=== PATIENT | female | born 1950 | race Asian ===

== ENCOUNTER 2017-06-30 13:14 | Inpatient (IN) | payer MEDICARE ==
[~2017-06-30] VITALS: Ht 162.6 cm; Wt 64.9 kg
[~2017-06-30 13:14] MED LIST: ETOMIDATE 2 MG/ML 10 ML VIAL IVP ONE; ROCURONIUM BROMIDE 10 MG/ML 5 ML VIAL IVP ONE
[2017-06-30] MEDS ORDERED: FentaNYL CITRATE PF 500 MCG in DEXTROSE 5%-WATER 90 ML IV PRN ×2 (13:30→21:24)
[2017-06-30] MEDS ORDERED: FentaNYL CITRATE-PF 100 MCG/2 ML VIAL ONE (13:32)
[2017-06-30 13:40] LABS: BASOPHILS % (AUTO) 0.5 % (0.0-2.0); EOSINOPHILS % (AUTO) 2.4 % (1.0-6.0); HEMATOCRIT 26.2 % (36-46); HEMOGLOBIN 8.6 g/dL (12.0-16.0); LYMPHOCYTES # (AUTO) 2.3 K/uL (1.0-4.8); LYMPHOCYTES % (AUTO) 9.5 % (22.0-44.0); MEAN CORPUSCULAR HEMOGLOBIN 30.1 pg (26.0-34.0); MEAN CORPUSCULAR VOLUME 91 fL (80-100); MONOCYTES # (AUTO) 0.7 K/uL (0.1-1.0); NEUTROPHILS # (AUTO) 20.3 K/uL (1.8-7.7); NEUTROPHILS % (AUTO) 84.6 % (40.0-70.0); PLATELET COUNT (AUTO) 282 K/uL (150-450); RED BLOOD CELL COUNT(AUTO) 2.86 MIL/uL (4.00-5.20); RED CELL DISTRIBUTION WIDTH 18.6 % (11.5-14.5)
[2017-06-30 13:43] LABS: ABG A-A DIFF O2 407.3 mmHg (10-20.0); ABG BASE EXCESS -7.3 mmol/L (-2.0-3.0); ABG CARBOXYHEMOGLOBIN 1.7 % (0.0-1.5); ABG HCO3 19.3 mmol/L (22.0-26.0); ABG METHEMOGLOBIN 0.7 % (0.0-1.5); ABG OXYGEN CONTENT 12.9 mL/dL (15.0-23.0); ABG OXYHEMOGLOBIN 97.6 % (94.0-100.0); ABG PCO2 28 mmHg (35-45); ABG PH 7.408 (7.35-7.450); ABG TOTAL HEMOGLOBIN 8.9 G/dL (12.0-18.0); O2 DEVICE,BLOOD GAS VENTILATOR (ROOM AIR); PEEP,BG 5 cm H2O; PO2, ARTERIAL BG 277.8 mmHg (79.0-87.0); SITE, BLOOD GAS RT RADIAL; SOURCE, BLOOD GAS ARTERIAL; TEMPERATURE, FAHRENHEIT, BG 98.4 FAHREN (96.0-98.6); VT, ABG 500 ml
[2017-06-30] MEDS ORDERED: INSU3INS3 SQ (13:51)
[2017-06-30] MEDS ORDERED: LEVO150 PO (13:51)
[2017-06-30] MEDS ORDERED: ATOR40TA28 PO (13:51)
[2017-06-30] MEDS ORDERED: INSREG SQ (13:51)
[2017-06-30] MEDS ORDERED: FAMO20 PO (13:51)
[2017-06-30] MEDS ORDERED: SERT100T12 PO (13:51)
[2017-06-30] MEDS ORDERED: ALPR0.255 PO (13:51)
[2017-06-30] MEDS ORDERED: CLOP75 PO (13:51)
[2017-06-30] MEDS ORDERED: DSS100 PO (13:51)
[2017-06-30] MEDS ORDERED: OXYC5CAP19 PO (13:51)
[2017-06-30] MEDS ORDERED: CARV25 PO (13:51)
[2017-06-30] MEDS ORDERED: AMYL1CAP63 PO (13:51)
[2017-06-30] MEDS ORDERED: CLON1PAT13 TD (13:51)
[2017-06-30] MEDS ORDERED: DEXT1CAP3 PO (13:51)
[2017-06-30] MEDS ORDERED: IPRA3AMP4 NEB (13:51)
[2017-06-30] MEDS ORDERED: AMLO-512 PO (13:51)
[2017-06-30 13:56] LABS: ACETONE,BLOOD NEGATIVE (NEGATIVE); OSMOLALITY 334 mOS/kg (270-310)
[2017-06-30] MEDS ORDERED: SODIUM CHLORIDE 0.9% 1,000 ML IV ONE ×2 (14:00)
[2017-06-30] MEDS ORDERED: CEFEPIME HCL 1 GM in DEXTROSE 5%-WATER 10 ML IV ONE (14:00)
[2017-06-30] MEDS ORDERED: VANCOMYCIN HCL 1 GM/D5% WATER 200 ML IV ONE (14:00)
[2017-06-30 14:03] LABS: ALANINE AMINOTRANSFERASE 20 U/L (12-78); ALBUMIN 2.9 g/dL (3.4-5.0); ALKALINE PHOSPHATASE 114 U/L (46-116); ANION GAP 10 mmol/L (8-16); ASPARTATE AMINOTRANSFERASE 17 U/L (15-37); BILIRUBIN,TOTAL 0.3 mg/dL (0.1-1.0); CALCIUM, TOTAL 9.2 mg/dL (8.8-10.5); CARBON DIOXIDE 22 mmol/L (22-29); CHLORIDE 98 mmol/L (98-107); CREATINE KINASE, TOTAL 33 U/L (26-192); CREATININE 2.56 mg/dL (0.60-1.30); GLOMERULAR FILTR. RATE CALC 19 mL/min (>60); SODIUM SERUM 130 mmol/L (136-145); TOTAL PROTEIN, SERUM 8.2 g/dL (6.4-8.2); UREA NITROGEN, BLOOD 81 mg/dL (7-18)
[2017-06-30 14:05] LABS: INR 0.9 (0.9-1.1); PROTHROMBIN TIME 9.9 SEC (9.4-11.6)
[2017-06-30 14:06] LABS: LACTIC ACID 2.9 mmol/L (0.4-2.0)
[2017-06-30 14:16] LABS: GLUCOSE,RANDOM 407 mg/dL (70-110); POTASSIUM 8.5 mmol/L (3.5-5.1)
[2017-06-30 14:17] LABS: THYROID STIMULATING HORMONE 37.99 uIU/mL (0.36-3.74)
[2017-06-30] MEDS ORDERED: SODIUM BICARBONATE [ADULT] 8.4% 50 MEQ/50 ML SYRINGE IVP ONE ×2 (14:30→17:15)
[2017-06-30] MEDS ORDERED: ATROPINE SULFATE 0.1 MG/ML 10 ML SYRINGE IVP ONE (14:30)
[2017-06-30] MEDS ORDERED: ALBUTEROL SULFATE 5 MG/ML 20 ML NEB SOLN [BULK] NEB ONE (14:30)
[2017-06-30] MEDS ORDERED: INSULIN REGULAR, HUMAN 100 UNITS/ML IVP ONE (14:30)
[2017-06-30] MEDS ORDERED: DEXTROSE 50%-WATER 25 GM/50 ML SYRINGE IVP ONE (14:30)
[2017-06-30] MEDS ORDERED: CALCIUM GLUCONATE 0.465 MEQ/ML 10 ML VIAL IVP ONE (14:30)
[2017-06-30] MEDS ORDERED: FUROSEMIDE 40 MG/4 ML VIAL IVP ONE (14:45)
[2017-06-30 14:49] LABS: B-TYPE NATRIURETIC PEPTIDE 53 pg/mL (0-100)
[2017-06-30] MEDS ORDERED: FentaNYL CITRATE-PF 100 MCG/2 ML VIAL IVP ONE (15:45)
[2017-06-30] MEDS ORDERED: PROPOFOL 1000 MG/ISO-OSM 100 ML IV PRN (15:51)
[2017-06-30] MEDS ORDERED: 0.9% SODIUM CHLORIDE 10 ML SYRINGE IVP PRN (16:00)
[2017-06-30] MEDS ORDERED: ONDANSETRON HCL 4 MG/2 ML VIAL IVP PRN ×2 (16:00→17:45)
[2017-06-30] MEDS ORDERED: ACETAMINOPHEN 325 MG TABLET PO PRN (16:00)
[2017-06-30 16:32] LABS: GLUCOSE,POINT OF CARE 238 MG/DL (70-110)
[2017-06-30] MEDS: LORazepam 2 MG/ML VIAL IVP PRN (16:33)
[2017-06-30 16:52] LABS: CREATINE KINASE, TOTAL 42 U/L (26-192)
[2017-06-30 17:00] VITALS: BP 67/48
[2017-06-30] MEDS ORDERED: NOREPINEPHRINE 4 MG/D5%-WATER 250 ML IV PRN (17:13)
[2017-06-30] MEDS ORDERED: PHENYLEPHRINE 200 MG/D5%-WATER 250 ML IV PRN (17:16)
[2017-06-30] MEDS ORDERED: NOREPINEPHRINE 4 MG/D5%-WATER 250 ML IV ONE (17:18)
[2017-06-30 17:20] LABS: ABG A-A DIFF O2 85.5 mmHg (10-20.0); ABG BASE EXCESS -5.1 mmol/L (-2.0-3.0); ABG CARBOXYHEMOGLOBIN 0.8 % (0.0-1.5); ABG HCO3 20.8 mmol/L (22.0-26.0); ABG METHEMOGLOBIN 0.2 % (0.0-1.5); ABG OXYGEN CONTENT 10.9 mL/dL (15.0-23.0); ABG OXYGEN SATURATION 98.3 % (95.0-98.0); ABG OXYHEMOGLOBIN 97.3 % (94.0-100.0); ABG PCO2 27 mmHg (35-45); ABG PH 7.463 (7.35-7.450); PO2, ARTERIAL BG 97.5 mmHg (79.0-87.0); SOURCE, BLOOD GAS ARTERIAL; TEMPERATURE, FAHRENHEIT, BG 97.3 FAHREN (96.0-98.6)
[2017-06-30 17:21] LABS: ABG TOTAL HEMOGLOBIN 7.8 G/dL (12.0-18.0); O2 DEVICE,BLOOD GAS VENTILATOR (ROOM AIR); PEEP,BG 5 cm H2O; SITE, BLOOD GAS RT RADIAL; VT, ABG 500 ml
[2017-06-30] MEDS ORDERED: VANCOMYCIN HCL 1 GM/D5% WATER 200 ML IV PRN (17:30)
[2017-06-30] MEDS: SODIUM CHLORIDE 0.9% 1,000 ML IV SCH (17:41)
[2017-06-30] MEDS ORDERED: BISACODYL 10 MG RECTAL RECTAL SUPPOSITORY PR PRN (17:45)
[2017-06-30] MEDS ORDERED: MAGNESIUM HYDROXIDE SUSPENSION 30 ML UDCUP PO PRN (17:45)
[2017-06-30] MEDS ORDERED: SODIUM CHLORIDE 0.9% 250 ML IV ONE (18:01)
[2017-06-30] MEDS: LevETIRAcetam 500 MG in DEXTROSE 5%-WATER 100 ML IV SCH (18:09)
[2017-06-30] MEDS: PIPERACILLIN SODIUM/TAZOBACTAM 2.25 GM in DEXTROSE 5%-WATER 50 ML IV SCH (18:09)
[2017-06-30] MEDS ORDERED: METOCLOPRAMIDE HCL 5 MG/ML 2 ML VIAL IVP PRN (18:15)
[2017-06-30 18:25] LABS: CREATINE KINASE, TOTAL 39 U/L (26-192)
[2017-06-30 19:17] LABS: SODIUM,URINE RANDOM 75 mmol/l (20-110); UREA NITROGEN,URINE RANDOM 360 mg/dL (350-1000)
[2017-06-30 19:48] LABS: APPEARANCE,URINE CLOUDY (CLEAR); BILIRUBIN,URINE NEGATIVE (NEGATIVE); GLUCOSE, URINE (UA) 100 mg/dL (NEGATIVE); KETONES,URINE NEGATIVE (NEGATIVE); LEUKOCYTE ESTERASE ,URINE LARGE (NEGATIVE); NITRATE,URINE NEGATIVE (NEGATIVE); OCCULT BLOOD,URINE SMALL (NEGATIVE); PROTEIN,URINE SEE CONFIRM (NEGATIVE); UROBILINOGEN,URINE 0.2 mg/dL (<=1.0)
[2017-06-30 19:54] LABS: GLUCOSE,POINT OF CARE 97 MG/DL (70-110)
[2017-06-30 20:00] VITALS: BP 113/67
[2017-06-30 20:45] LABS: CALCIUM, TOTAL 9.1 mg/dL (8.8-10.5); CREATININE 1.53 mg/dL (0.60-1.30); POTASSIUM 4.5 mmol/L (3.5-5.1)
[2017-06-30] MEDS ORDERED: PNEUMOCOCCAL VACCINE POLYVALENT 0.5 ML VIAL [PPSV23] IM ONE (20:45)
[2017-06-30] MEDS ORDERED: HEPARIN SODIUM,PORCINE 1,000 UNITS/ML VIAL IVP ONE (20:53)
[2017-06-30 20:59] LABS: SULFOSALICYLIC ACID,URINE 3+ (Negative)
[2017-06-30 21:07] LABS: RBC,URINE 0-2 /HPF (0-2); WBC,URINE >100 /HPF (0-5)
[2017-06-30 21:08] LABS: AMORPHOUS SEDIMENT,UR Few /LPF (None Seen); BACTERIA,URINE Moderate /HPF (None Seen); RENAL EPITHELIAL CELLS,URINE Rare /LPF (None Seen); SQUAMOUS EPITHELIAL CELL,UR Rare /LPF (None Seen)
[2017-06-30 21:12] LABS: HEMATOCRIT 24.6 % (36-46); HEMOGLOBIN 8.6 g/dL (12.0-16.0)
[2017-07-01] VITALS: BP 92/58
[2017-07-01] MEDS: SODIUM CHLORIDE 0.9% 1,000 ML IV SCH ×2 (00:10→06:46)
[2017-07-01] MEDS: PIPERACILLIN SODIUM/TAZOBACTAM 2.25 GM in DEXTROSE 5%-WATER 50 ML IV SCH ×4 (00:10→17:31)
[2017-07-01] MEDS: PROPOFOL 1000 MG/ISO-OSM 100 ML IV PRN ×2 (00:11→17:29)
[2017-07-01] MEDS: DEXTROSE 50%-WATER 25 GM/50 ML SYRINGE IVP PRN ×2 (00:25→06:47)
[2017-07-01 00:57] LABS: GLUCOSE,POINT OF CARE 36 MG/DL (70-110)
[2017-07-01 01:07] LABS: GLUCOSE,POINT OF CARE 197 MG/DL (70-110)
[2017-07-01 01:10] LABS: CREATINE KINASE, TOTAL 46 U/L (26-192)
[2017-07-01 04:00] VITALS: BP 111/66
[2017-07-01 05:16] LABS: HEMOGLOBIN A1C 6.1 % (4.5-6.2)
[2017-07-01 05:22] LABS: BASOPHILS % (AUTO) 0.5 % (0.0-2.0); EOSINOPHILS % (AUTO) 1.7 % (1.0-6.0); HEMATOCRIT 21.5 % (36-46); HEMOGLOBIN 7.5 g/dL (12.0-16.0); LYMPHOCYTES # (AUTO) 1.6 K/uL (1.0-4.8); LYMPHOCYTES % (AUTO) 9.2 % (22.0-44.0); MEAN CORPUSCULAR HEMOGLOBIN 32.2 pg (26.0-34.0); MEAN CORPUSCULAR HGB CONC 35.1 G/dL (31.0-37.0); MEAN CORPUSCULAR VOLUME 92 fL (80-100); MONOCYTES # (AUTO) 0.8 K/uL (0.1-1.0); MONOCYTES % (AUTO) 4.7 % (2.0-9.0); NEUTROPHILS # (AUTO) 14.2 K/uL (1.8-7.7); NEUTROPHILS % (AUTO) 83.9 % (40.0-70.0); RED BLOOD CELL COUNT(AUTO) 2.34 MIL/uL (4.00-5.20); RED CELL DISTRIBUTION WIDTH 18.6 % (11.5-14.5)
[2017-07-01 05:25] LABS: ALANINE AMINOTRANSFERASE 17 U/L (12-78); ALBUMIN 2.3 g/dL (3.4-5.0); ALKALINE PHOSPHATASE 80 U/L (46-116); ANION GAP 10 mmol/L (8-16); ASPARTATE AMINOTRANSFERASE 20 U/L (15-37); BILIRUBIN,TOTAL 0.4 mg/dL (0.1-1.0); CALCIUM, TOTAL 8.6 mg/dL (8.8-10.5); CARBON DIOXIDE 26 mmol/L (22-29); CHLORIDE 105 mmol/L (98-107); CHOL/HDL RATIO 3.6 (3.9-5.7); CHOLESTEROL 123 mg/dL (131-200); CREATININE 1.73 mg/dL (0.60-1.30); FREE T4 (FREE THYROXINE) 0.77 ng/dL (0.76-1.46); GLOMERULAR FILTR. RATE CALC 30 mL/min (>60); GLUCOSE,RANDOM 101 mg/dL (70-110); HDL CHOLESTEROL 34 mg/dL (40-60); PHOSPHORUS 2.2 mg/dL (2.5-4.9); POTASSIUM 3.5 mmol/L (3.5-5.1); SODIUM SERUM 141 mmol/L (136-145); THYROID STIMULATING HORMONE 38.61 uIU/mL (0.36-3.74); TOTAL PROTEIN, SERUM 6.7 g/dL (6.4-8.2); TRIGLYCERIDES 479 mg/dL (15-150); UREA NITROGEN, BLOOD 31 mg/dL (7-18); VANCOMYCIN,RANDOM 15.8 mcg/mL (25.0-50.0)
[2017-07-01 05:26] LABS: B-TYPE NATRIURETIC PEPTIDE 164 pg/mL (0-100)
[2017-07-01 05:48] LABS: LACTIC ACID 3.1 mmol/L (0.4-2.0)
[2017-07-01 05:49] LABS: % IRON SATURATION 10.9 % (22-44); IRON, SERUM 32 mcg/dL (50-175); TOTAL IRON BINDING CAPACITY 293 mcg/dL (250-450)
[2017-07-01 06:24] LABS: PLATELET COUNT (AUTO) 166 K/uL (150-450)
[2017-07-01] MEDS ORDERED: MAGNESIUM SULFATE 2 GM in DEXTROSE 5%-WATER 50 ML IV ONE ×2 (06:30→08:30)
[2017-07-01] MEDS: LEVOTHYROXINE SODIUM 150 MCG TABLET PO SCH (06:46)
[2017-07-01] MEDS: LevETIRAcetam 500 MG in DEXTROSE 5%-WATER 100 ML IV SCH ×2 (06:46→17:26)
[2017-07-01 08:00] VITALS: BP 130/67
[2017-07-01 08:28] LABS: GLUCOSE,POINT OF CARE 84 MG/DL (70-110)
[2017-07-01 08:28] LABS: GLUCOSE,POINT OF CARE 57 MG/DL (70-110)
[2017-07-01] MEDS ORDERED: SODIUM CHLORIDE 0.9% 250 ML IV ONE ×4 (08:37→23:56)
[2017-07-01 08:47] LABS: GLUCOSE,POINT OF CARE 138 MG/DL (70-110)
[2017-07-01] MEDS ORDERED: CLOPIDOGREL BISULFATE 75 MG TABLET PO SCH (09:00)
[2017-07-01] MEDS: PANTOPRAZOLE SODIUM 40 MG/VIAL IVP SCH (09:03)
[2017-07-01] MEDS: DEXTROSE 5%-0.9% SODIUM CHL 1,000 ML IV SCH ×2 (09:03→22:02)
[2017-07-01 09:32] LABS: ABG A-A DIFF O2 88.2 mmHg (10-20.0); ABG BASE EXCESS -2.9 mmol/L (-2.0-3.0); ABG CARBOXYHEMOGLOBIN 1.4 % (0.0-1.5); ABG HCO3 22.4 mmol/L (22.0-26.0); ABG METHEMOGLOBIN 0.1 % (0.0-1.5); ABG OXYGEN CONTENT 10.1 mL/dL (15.0-23.0); ABG OXYGEN SATURATION 98.3 % (95.0-98.0); ABG OXYHEMOGLOBIN 96.8 % (94.0-100.0); ABG PCO2 26 mmHg (35-45); ABG PH 7.508 (7.35-7.450); PO2, ARTERIAL BG 95.6 mmHg (79.0-87.0); SOURCE, BLOOD GAS ARTERIAL; TEMPERATURE, FAHRENHEIT, BG 97.9 FAHREN (96.0-98.6)
[2017-07-01 09:33] LABS: ABG TOTAL HEMOGLOBIN 7.3 G/dL (12.0-18.0); O2 DEVICE,BLOOD GAS VENTILATOR (ROOM AIR); SITE, BLOOD GAS LFT BRACHIAL
[2017-07-01 09:34] LABS: PEEP,BG 5 cm H2O; VT, ABG 500 ml
[2017-07-01 09:44] LABS: CREATINE KINASE, TOTAL 61 U/L (26-192)
[2017-07-01] MEDS ORDERED: SODIUM PHOS,M-BASIC-D-BASIC 10 MEQ in DEXTROSE 5%-WATER 50 ML IV ONE (10:30)
[2017-07-01] MEDS ORDERED: VANCOMYCIN HCL 1 GM/D5% WATER 200 ML IV ONE (11:00)
[2017-07-01 12:00] VITALS: BP 96/60
[2017-07-01 12:18] LABS: FOLATE SERUM > 24.0 ng/mL (5.4-)
[2017-07-01 12:19] LABS: VITAMIN B12 LEVEL > 2000 pg/mL (211-911)
[2017-07-01 12:32] LABS: GLUCOSE,POINT OF CARE 173 MG/DL (70-110)
[2017-07-01] MEDS: SOD FERRIC GLUC COMPLX/SUCROSE 125 MG in SODIUM CHLORIDE 0.9% 100 ML IV SCH (13:10)
[2017-07-01 16:00] VITALS: BP 127/64
[2017-07-01 17:27] LABS: GLUCOSE,POINT OF CARE 226 MG/DL (70-110)
[2017-07-01] MEDS: INSULIN LISPRO 100 UNITS/ML SQ PRN ×2 (17:30→22:01)
[2017-07-01] MEDS ORDERED: SODIUM BICARBONATE [ADULT] 8.4% 50 MEQ/50 ML SYRINGE IVP ONE (17:54)
[2017-07-01] MEDS ORDERED: ATROPINE SULFATE 0.1 MG/ML 10 ML SYRINGE IVP ONE (17:54)
[2017-07-01] MEDS ORDERED: CALCIUM GLUCONATE 100 MG/ML 10 ML IVP ONE (17:54)
[2017-07-01 20:00] VITALS: BP 123/63
[2017-07-01 23:17] LABS: GLUCOSE,POINT OF CARE 215 MG/DL (70-110)
[2017-07-02] VITALS (19 sets, daily range): BP systolic 123–172; BP diastolic 51–78
[2017-07-02] MEDS: INSULIN LISPRO 100 UNITS/ML SQ PRN ×4 (00:10→17:43)
[2017-07-02] MEDS: PIPERACILLIN SODIUM/TAZOBACTAM 2.25 GM in DEXTROSE 5%-WATER 50 ML IV SCH ×4 (00:10→17:44)
[2017-07-02 00:57] LABS: GLUCOSE,POINT OF CARE 198 MG/DL (70-110)
[2017-07-02] MEDS: PROPOFOL 1000 MG/ISO-OSM 100 ML IV PRN ×2 (02:06→12:57)
[2017-07-02] MEDS: LevETIRAcetam 500 MG in DEXTROSE 5%-WATER 100 ML IV SCH ×2 (05:01→17:41)
[2017-07-02 05:20] LABS: BASOPHILS % (AUTO) 0.5 % (0.0-2.0); EOSINOPHILS % (AUTO) 1.3 % (1.0-6.0); LYMPHOCYTES # (AUTO) 1.3 K/uL (1.0-4.8); LYMPHOCYTES % (AUTO) 7.4 % (22.0-44.0); MEAN CORPUSCULAR HEMOGLOBIN 31.9 pg (26.0-34.0); MEAN CORPUSCULAR HGB CONC 34.3 G/dL (31.0-37.0); MEAN CORPUSCULAR VOLUME 93 fL (80-100); MONOCYTES # (AUTO) 1.1 K/uL (0.1-1.0); MONOCYTES % (AUTO) 6.2 % (2.0-9.0); NEUTROPHILS # (AUTO) 14.6 K/uL (1.8-7.7); NEUTROPHILS % (AUTO) 84.6 % (40.0-70.0); PLATELET COUNT (AUTO) 154 K/uL (150-450); RED BLOOD CELL COUNT(AUTO) 2.05 MIL/uL (4.00-5.20); RED CELL DISTRIBUTION WIDTH 18.4 % (11.5-14.5)
[2017-07-02 05:32] LABS: CALCIUM, TOTAL 7.9 mg/dL (8.8-10.5); CREATININE 2.04 mg/dL (0.60-1.30); MAGNESIUM 2.2 mg/dL (1.80-2.40); PHOSPHORUS 4.2 mg/dL (2.5-4.9); POTASSIUM 3.4 mmol/L (3.5-5.1)
[2017-07-02 05:42] LABS: GLUCOSE,POINT OF CARE 193 MG/DL (70-110)
[2017-07-02 06:08] LABS: HEMOGLOBIN 6.5 g/dL (12.0-16.0)
[2017-07-02] MEDS: LEVOTHYROXINE SODIUM 150 MCG TABLET PO SCH (06:24)
[2017-07-02] MEDS ORDERED: DiphenhydrAMINE HCL 50 MG/ML VIAL IVP ONE (07:00)
[2017-07-02] MEDS: VANCOMYCIN HCL 750 MG in DEXTROSE 5%-WATER 250 ML IV SCH (08:27)
[2017-07-02] MEDS: PANTOPRAZOLE SODIUM 40 MG/VIAL IVP SCH (08:27)
[2017-07-02 09:29] LABS: ABG A-A DIFF O2 31.5 mmHg (10-20.0); ABG BASE EXCESS -10.6 mmol/L (-2.0-3.0); ABG CARBOXYHEMOGLOBIN 1.8 % (0.0-1.5); ABG HCO3 16.7 mmol/L (22.0-26.0); ABG OXYGEN CONTENT 11.8 mL/dL (15.0-23.0); ABG OXYGEN SATURATION 99.1 % (95.0-98.0); ABG OXYHEMOGLOBIN 96.3 % (94.0-100.0); ABG PCO2 31 mmHg (35-45); ABG PH 7.315 (7.35-7.450); ABG TOTAL HEMOGLOBIN 8.5 G/dL (12.0-18.0); PO2, ARTERIAL BG 145.7 mmHg (79.0-87.0); SOURCE, BLOOD GAS ARTERIAL; TEMPERATURE, FAHRENHEIT, BG 98.2 FAHREN (96.0-98.6)
[2017-07-02 09:30] LABS: O2 DEVICE,BLOOD GAS VENTILATOR (ROOM AIR); PEEP,BG 5 cm H2O; SITE, BLOOD GAS LFT BRACHIAL; VT, ABG 450 ml
[2017-07-02] MEDS: SODIUM CHLORIDE 0.45% 1,000 ML IV SCH (11:26)
[2017-07-02] MEDS: LORazepam 2 MG/ML VIAL IVP PRN (11:26)
[2017-07-02 12:53] LABS: GLUCOSE,POINT OF CARE 248 MG/DL (70-110)
[2017-07-02] MEDS: SOD FERRIC GLUC COMPLX/SUCROSE 125 MG in SODIUM CHLORIDE 0.9% 100 ML IV SCH (12:56)
[2017-07-02 15:52] LABS: ABG A-A DIFF O2 49.4 mmHg (10-20.0); ABG BASE EXCESS -5.7 mmol/L (-2.0-3.0); ABG HCO3 20.4 mmol/L (22.0-26.0); ABG METHEMOGLOBIN 0.6 % (0.0-1.5); ABG OXYGEN CONTENT 14.8 mL/dL (15.0-23.0); ABG OXYGEN SATURATION 98.8 % (95.0-98.0); ABG OXYHEMOGLOBIN 96.2 % (94.0-100.0); ABG PCO2 34 mmHg (35-45); ABG PH 7.381 (7.35-7.450); ABG TOTAL HEMOGLOBIN 10.8 G/dL (12.0-18.0); PO2, ARTERIAL BG 125.3 mmHg (79.0-87.0); SOURCE, BLOOD GAS ARTERIAL; TEMPERATURE, FAHRENHEIT, BG 97.9 FAHREN (96.0-98.6)
[2017-07-02 15:53] LABS: CPAP, BG 5 cm H2O; O2 DEVICE,BLOOD GAS VENTILATOR (ROOM AIR); PRESSURE SUPPORT, BG 8 cm H2O; SITE, BLOOD GAS LFT BRACHIAL; VENT MODE, BG CPAP (ROOM AIR)
[2017-07-02 17:22] LABS: GLUCOSE,POINT OF CARE 166 MG/DL (70-110)
[2017-07-02 18:00] LABS: CALCIUM, TOTAL 8.2 mg/dL (8.8-10.5); CREATININE 1.77 mg/dL (0.60-1.30); POTASSIUM 3.2 mmol/L (3.5-5.1)
[2017-07-02] MEDS: POTASSIUM CHL 10 MEQ/WATER 50 ML IV SCH ×2 (18:27→21:15)
[2017-07-02] MEDS: METOPROLOL TARTRATE 25 MG TABLET PO SCH (23:04)
[2017-07-03] VITALS (9 sets, daily range): BP systolic 145–179; BP diastolic 65–89
[2017-07-03] MEDS: INSULIN LISPRO 100 UNITS/ML SQ PRN ×5 (00:18→23:48)
[2017-07-03] MEDS: PIPERACILLIN SODIUM/TAZOBACTAM 2.25 GM in DEXTROSE 5%-WATER 50 ML IV SCH ×2 (00:19→06:05)
[2017-07-03 04:08] LABS: GLUCOSE,POINT OF CARE 184 MG/DL (70-110)
[2017-07-03] MEDS ORDERED: SODIUM CHLORIDE 0.9% 250 ML IV ONE (04:11)
[2017-07-03] MEDS: HydrALAZINE HCL 20 MG/ML VIAL IVP PRN ×3 (04:48→23:04)
[2017-07-03] MEDS: LevETIRAcetam 500 MG in DEXTROSE 5%-WATER 100 ML IV SCH (05:01)
[2017-07-03] MEDS: LORazepam 2 MG/ML VIAL IVP PRN ×3 (05:01→21:41)
[2017-07-03 05:26] LABS: BASOPHILS % (AUTO) 0.7 % (0.0-2.0); EOSINOPHILS % (AUTO) 2.2 % (1.0-6.0); HEMATOCRIT 29.4 % (36-46); HEMOGLOBIN 10.3 g/dL (12.0-16.0); LYMPHOCYTES # (AUTO) 1.6 K/uL (1.0-4.8); LYMPHOCYTES % (AUTO) 9.5 % (22.0-44.0); MEAN CORPUSCULAR HEMOGLOBIN 31.1 pg (26.0-34.0); MEAN CORPUSCULAR HGB CONC 35.1 G/dL (31.0-37.0); MEAN CORPUSCULAR VOLUME 89 fL (80-100); MONOCYTES # (AUTO) 1.2 K/uL (0.1-1.0); MONOCYTES % (AUTO) 7.2 % (2.0-9.0); NEUTROPHILS # (AUTO) 13.7 K/uL (1.8-7.7); NEUTROPHILS % (AUTO) 80.4 % (40.0-70.0); PLATELET COUNT (AUTO) 171 K/uL (150-450); RED BLOOD CELL COUNT(AUTO) 3.32 MIL/uL (4.00-5.20); RED CELL DISTRIBUTION WIDTH 16.8 % (11.5-14.5)
[2017-07-03 05:38] LABS: GLUCOSE,POINT OF CARE 171 MG/DL (70-110)
[2017-07-03 05:59] LABS: CREATININE 1.54 mg/dL (0.60-1.30); MAGNESIUM 1.8 mg/dL (1.80-2.40); PHOSPHORUS 3.2 mg/dL (2.5-4.9); POTASSIUM 3.5 mmol/L (3.5-5.1)
[2017-07-03] MEDS: LEVOTHYROXINE SODIUM 150 MCG TABLET PO SCH (06:05)
[2017-07-03] MEDS: SODIUM CHLORIDE 0.45% 1,000 ML IV SCH (06:05)
[2017-07-03] MEDS: METOPROLOL TARTRATE 25 MG TABLET PO SCH ×2 (08:27→20:52)
[2017-07-03] MEDS: VANCOMYCIN HCL 750 MG in DEXTROSE 5%-WATER 250 ML IV SCH (08:27)
[2017-07-03] MEDS: PANTOPRAZOLE SODIUM 40 MG/VIAL IVP SCH (08:27)
[2017-07-03 12:12] LABS: GLUCOSE,POINT OF CARE 241 MG/DL (70-110)
[2017-07-03] MEDS: SOD FERRIC GLUC COMPLX/SUCROSE 125 MG in SODIUM CHLORIDE 0.9% 100 ML IV SCH (13:03)
[2017-07-03] MEDS: ACETAMINOPHEN 650 MG/20.3 ML SOLUTION UDCUP GT PRN (14:55)
[2017-07-03] MEDS: MORPHINE SULFATE 4 MG/ML SYRINGE IVP PRN (18:10)
[2017-07-03] MEDS: DOCUSATE SODIUM 100 MG CAPSULE PO SCH (20:52)
[2017-07-03 23:28] LABS: GLUCOSE,POINT OF CARE 189 MG/DL (70-110)
[2017-07-04] VITALS (7 sets, daily range): BP systolic 144–164; BP diastolic 74–91
[2017-07-04] MEDS: HydrALAZINE HCL 20 MG/ML VIAL IVP PRN (05:15)
[2017-07-04] MEDS: LEVOTHYROXINE SODIUM 150 MCG TABLET PO SCH (06:08)
[2017-07-04] MEDS: INSULIN LISPRO 100 UNITS/ML SQ PRN ×3 (06:09→17:51)
[2017-07-04 06:12] LABS: BASOPHILS % (AUTO) 0.6 % (0.0-2.0); EOSINOPHILS % (AUTO) 3.9 % (1.0-6.0); HEMOGLOBIN 11.7 g/dL (12.0-16.0); LYMPHOCYTES # (AUTO) 1.7 K/uL (1.0-4.8); LYMPHOCYTES % (AUTO) 8.3 % (22.0-44.0); MEAN CORPUSCULAR HEMOGLOBIN 30.3 pg (26.0-34.0); MEAN CORPUSCULAR HGB CONC 34.6 G/dL (31.0-37.0); MEAN CORPUSCULAR VOLUME 88 fL (80-100); MONOCYTES # (AUTO) 1.2 K/uL (0.1-1.0); MONOCYTES % (AUTO) 6.1 % (2.0-9.0); NEUTROPHILS # (AUTO) 16.5 K/uL (1.8-7.7); NEUTROPHILS % (AUTO) 81.1 % (40.0-70.0); PLATELET COUNT (AUTO) 215 K/uL (150-450); RED BLOOD CELL COUNT(AUTO) 3.87 MIL/uL (4.00-5.20); RED CELL DISTRIBUTION WIDTH 17.8 % (11.5-14.5)
[2017-07-04 06:30] LABS: CALCIUM, TOTAL 8.7 mg/dL (8.8-10.5); CREATININE 1.47 mg/dL (0.60-1.30); MAGNESIUM 1.9 mg/dL (1.80-2.40); PHOSPHORUS 2.8 mg/dL (2.5-4.9); POTASSIUM 4.1 mmol/L (3.5-5.1)
[2017-07-04 06:53] LABS: GLUCOSE,POINT OF CARE 178 MG/DL (70-110)
[2017-07-04] MEDS: PANTOPRAZOLE SODIUM 40 MG/VIAL IVP SCH (07:51)
[2017-07-04] MEDS: METOPROLOL TARTRATE 25 MG TABLET PO SCH ×2 (07:51→21:36)
[2017-07-04] MEDS: MORPHINE SULFATE 4 MG/ML SYRINGE IVP PRN ×3 (07:51→21:50)
[2017-07-04] MEDS: DOCUSATE SODIUM 100 MG CAPSULE PO SCH ×2 (07:51→21:36)
[2017-07-04] MEDS: SOD FERRIC GLUC COMPLX/SUCROSE 125 MG in SODIUM CHLORIDE 0.9% 100 ML IV SCH (11:54)
[2017-07-04] MEDS: DEXTROMETHORPHAN HBR/QUINIDINE 20/10 MG CAPSULE PO SCH (12:45)
[2017-07-04 16:13] LABS: GLUCOMETER DEV NAME(LOC) 5S 1M; GLUCOSE,POINT OF CARE 241 MG/DL (70-110)
[2017-07-05 00:08] LABS: GLUCOMETER DEV NAME(LOC) 5N 1P; GLUCOSE,POINT OF CARE 203 MG/DL (70-110)
[2017-07-05] MEDS: INSULIN LISPRO 100 UNITS/ML SQ PRN ×4 (00:17→18:20)
[2017-07-05 00:38] VITALS: BP 160/81
[2017-07-05 03:28] LABS: GLUCOMETER DEV NAME(LOC) 5S 1M; GLUCOSE,POINT OF CARE 321 MG/DL (70-110)
[2017-07-05 05:00] VITALS: BP 152/86
[2017-07-05] MEDS: LEVOTHYROXINE SODIUM 150 MCG TABLET PO SCH (06:04)
[2017-07-05 07:24] VITALS: BP 155/79
[2017-07-05 07:29] LABS: CREATININE 1.48 mg/dL (0.60-1.30); MAGNESIUM 1.8 mg/dL (1.80-2.40); PHOSPHORUS 2.5 mg/dL (2.5-4.9); POTASSIUM 3.9 mmol/L (3.5-5.1)
[2017-07-05] MEDS: DEXTROMETHORPHAN HBR/QUINIDINE 20/10 MG CAPSULE PO SCH ×2 (08:40→20:29)
[2017-07-05] MEDS: VANCOMYCIN HCL 1 GM/D5% WATER 200 ML IV SCH (08:40)
[2017-07-05] MEDS: PANTOPRAZOLE SODIUM 40 MG/VIAL IVP SCH (08:40)
[2017-07-05] MEDS: METOPROLOL TARTRATE 25 MG TABLET PO SCH ×2 (08:40→20:29)
[2017-07-05] MEDS: DOCUSATE SODIUM 100 MG CAPSULE PO SCH ×2 (08:41→20:29)
[2017-07-05] MEDS ORDERED: ALPRAZolam 0.25 MG TABLET PO PRN (11:15)
[2017-07-05 11:38] VITALS: BP 154/73
[2017-07-05] MEDS: SOD FERRIC GLUC COMPLX/SUCROSE 125 MG in SODIUM CHLORIDE 0.9% 100 ML IV SCH (12:12)
[2017-07-05] MEDS ORDERED: SODIUM CHLORIDE 0.9% 250 ML IV ONE (12:24)
[2017-07-05 15:33] LABS: GLUCOMETER DEV NAME(LOC) 5N 1P; GLUCOSE,POINT OF CARE 346 MG/DL (70-110)
[2017-07-05 20:18] VITALS: BP 159/101
[2017-07-05] MEDS: ACETAMINOPHEN 650 MG/20.3 ML SOLUTION UDCUP GT PRN (20:29)
[2017-07-05 23:24] LABS: GLUCOMETER DEV NAME(LOC) 5N 2S; GLUCOSE,POINT OF CARE 242 MG/DL (70-110)
[2017-07-05 23:24] LABS: GLUCOMETER DEV NAME(LOC) 5N 2S; GLUCOSE,POINT OF CARE 219 MG/DL (70-110)
[2017-07-05 23:24] LABS: GLUCOMETER DEV NAME(LOC) 5N 2S; GLUCOSE,POINT OF CARE 263 MG/DL (70-110)
[2017-07-05 23:24] LABS: GLUCOMETER DEV NAME(LOC) 5N 2S; GLUCOSE,POINT OF CARE 295 MG/DL (70-110)
[2017-07-06 00:01] VITALS: BP 155/82
[2017-07-06] MEDS: INSULIN LISPRO 100 UNITS/ML SQ PRN ×4 (00:49→18:28)
[2017-07-06 05:12] VITALS: BP 159/79
[2017-07-06] MEDS: MORPHINE SULFATE 4 MG/ML SYRINGE IVP PRN ×2 (06:15→10:35)
[2017-07-06] MEDS: LEVOTHYROXINE SODIUM 150 MCG TABLET PO SCH (06:15)
[2017-07-06 06:48] LABS: CALCIUM, TOTAL 8.6 mg/dL (8.8-10.5); CREATININE 1.52 mg/dL (0.60-1.30)
[2017-07-06 06:49] LABS: BASOPHILS % (AUTO) 0.4 % (0.0-2.0); HEMATOCRIT 32.1 % (36-46); LYMPHOCYTES # (AUTO) 1.4 K/uL (1.0-4.8); LYMPHOCYTES % (AUTO) 7.1 % (22.0-44.0); MEAN CORPUSCULAR HEMOGLOBIN 30.6 pg (26.0-34.0); MEAN CORPUSCULAR HGB CONC 34.3 G/dL (31.0-37.0); MEAN CORPUSCULAR VOLUME 89 fL (80-100); MONOCYTES # (AUTO) 0.9 K/uL (0.1-1.0); MONOCYTES % (AUTO) 4.5 % (2.0-9.0); NEUTROPHILS # (AUTO) 17.6 K/uL (1.8-7.7); PLATELET COUNT (AUTO) 188 K/uL (150-450); RED CELL DISTRIBUTION WIDTH 17.2 % (11.5-14.5)
[2017-07-06 07:11] VITALS: BP 162/89
[2017-07-06] MEDS: DEXTROMETHORPHAN HBR/QUINIDINE 20/10 MG CAPSULE PO SCH ×2 (07:39→21:55)
[2017-07-06] MEDS: AmLODIPine BESYLATE 10 MG TABLET PO SCH (07:39)
[2017-07-06] MEDS: PANTOPRAZOLE SODIUM 40 MG/VIAL IVP SCH (07:39)
[2017-07-06] MEDS: DOCUSATE SODIUM 100 MG CAPSULE PO SCH ×2 (07:40→21:55)
[2017-07-06] MEDS: METOPROLOL TARTRATE 25 MG TABLET PO SCH ×2 (07:40→21:55)
[2017-07-06 07:52] LABS: GLUCOMETER DEV NAME(LOC) 5S 1M; GLUCOSE,POINT OF CARE 284 MG/DL (70-110)
[2017-07-06] MEDS: ACETAMINOPHEN 650 MG/20.3 ML SOLUTION UDCUP GT PRN ×2 (09:27→21:57)
[2017-07-06 12:13] LABS: GLUCOMETER DEV NAME(LOC) 5N 1P; GLUCOSE,POINT OF CARE 315 MG/DL (70-110)
[2017-07-06 12:13] LABS: GLUCOMETER DEV NAME(LOC) 5N 1P; GLUCOSE,POINT OF CARE 314 MG/DL (70-110)
[2017-07-06] MEDS: SOD FERRIC GLUC COMPLX/SUCROSE 125 MG in SODIUM CHLORIDE 0.9% 100 ML IV SCH (12:15)
[2017-07-06 12:30] VITALS: BP 163/85
[2017-07-06] MEDS ORDERED: BARIUM SULFATE 0.1% SUSPENSION 450 ML BOTTLE ONE (12:56)
[2017-07-06 15:27] VITALS: BP 159/96
[2017-07-06 19:38] VITALS: BP 168/89
[2017-07-07] MEDS: INSULIN LISPRO 100 UNITS/ML SQ PRN ×3 (00:04→12:42)
[2017-07-07 00:41] VITALS: BP 155/70
[2017-07-07 05:13] VITALS: BP 162/72
[2017-07-07] MEDS: HydrALAZINE HCL 20 MG/ML VIAL IVP PRN (05:30)
[2017-07-07] MEDS: ACETAMINOPHEN 650 MG/20.3 ML SOLUTION UDCUP GT PRN (05:31)
[2017-07-07] MEDS: LEVOTHYROXINE SODIUM 150 MCG TABLET PO SCH (06:03)
[2017-07-07 06:34] LABS: BASOPHILS % (AUTO) 0.3 % (0.0-2.0); EOSINOPHILS % (AUTO) 3.4 % (1.0-6.0); HEMATOCRIT 31.5 % (36-46); HEMOGLOBIN 11.1 g/dL (12.0-16.0); LYMPHOCYTES # (AUTO) 1.7 K/uL (1.0-4.8); MEAN CORPUSCULAR HEMOGLOBIN 31.5 pg (26.0-34.0); MEAN CORPUSCULAR HGB CONC 35.4 G/dL (31.0-37.0); MEAN CORPUSCULAR VOLUME 89 fL (80-100); MONOCYTES # (AUTO) 0.9 K/uL (0.1-1.0); MONOCYTES % (AUTO) 5.5 % (2.0-9.0); NEUTROPHILS # (AUTO) 13.7 K/uL (1.8-7.7); NEUTROPHILS % (AUTO) 80.8 % (40.0-70.0); PLATELET COUNT (AUTO) 188 K/uL (150-450); RED BLOOD CELL COUNT(AUTO) 3.54 MIL/uL (4.00-5.20); RED CELL DISTRIBUTION WIDTH 17.4 % (11.5-14.5)
[2017-07-07 06:58] LABS: CALCIUM, TOTAL 8.5 mg/dL (8.8-10.5); CREATININE 1.47 mg/dL (0.60-1.30); MAGNESIUM 1.6 mg/dL (1.80-2.40); PHOSPHORUS 3.3 mg/dL (2.5-4.9); POTASSIUM 3.8 mmol/L (3.5-5.1)
[2017-07-07 07:17] LABS: GLUCOMETER DEV NAME(LOC) 5N 1P; GLUCOSE,POINT OF CARE 290 MG/DL (70-110)
[2017-07-07 07:18] LABS: GLUCOMETER DEV NAME(LOC) 5N 1P; GLUCOSE,POINT OF CARE 311 MG/DL (70-110)
[2017-07-07 07:18] LABS: GLUCOMETER DEV NAME(LOC) PVLAB138; GLUCOSE,POINT OF CARE 255 MG/DL (70-110)
[2017-07-07] MEDS: AmLODIPine BESYLATE 10 MG TABLET PO SCH (07:32)
[2017-07-07] MEDS: DOCUSATE SODIUM 100 MG CAPSULE PO SCH (07:32)
[2017-07-07] MEDS: DEXTROMETHORPHAN HBR/QUINIDINE 20/10 MG CAPSULE PO SCH (07:32)
[2017-07-07] MEDS: VANCOMYCIN HCL 1 GM/D5% WATER 200 ML IV SCH (07:32)
[2017-07-07] MEDS: PANTOPRAZOLE SODIUM 40 MG/VIAL IVP SCH (07:32)
[2017-07-07] MEDS: METOPROLOL TARTRATE 25 MG TABLET PO SCH (07:32)
[2017-07-07 08:05] VITALS: BP 166/94
[2017-07-07] MEDS ORDERED: MAGNESIUM SULFATE 2 GM in DEXTROSE 5%-WATER 50 ML IV ONE (10:45)
[2017-07-07 11:24] VITALS: BP 165/86
[2017-07-07] MEDS ORDERED: METO50 PO (11:33)
[2017-07-07] MEDS ORDERED: LANS30TA4 PO (11:34)
[2017-07-07] MEDS ORDERED: DOXY150T PO (11:35)
[2017-07-07] MEDS ORDERED: AMOX100S6 GT (11:36)
[2017-07-07] MEDS ORDERED: CLOP75 PO (11:37)
[2017-07-07] MEDS ORDERED: BISA10S PR (11:40)
[2017-07-07] MEDS ORDERED: ACET650S14 PR (11:40)
[2017-07-07] MEDS ORDERED: HYDR10TA31 PO (11:42)
[2017-07-07] MEDS ORDERED: INSLAN SQ (11:42)
[2017-07-07] MEDS ORDERED: MOM30 PO (11:46)
[2017-07-07] MEDS ORDERED: METO-296 PO (11:48)
[2017-07-07] MEDS ORDERED: ONDA4 PO (11:49)
[2017-07-07 14:03] LABS: GLUCOMETER DEV NAME(LOC) 5S 2Q; GLUCOSE,POINT OF CARE 395 MG/DL (70-110)
[2017-07-07] MEDS ORDERED: METOPROLOL TARTRATE 50 MG TABLET PO SCH (21:00)
== END 2017-07-07 14:25 | DRG 871 ==
LOC: EMS 13:15 → ICU 15:35 → 5S 07-04 04:00 → 5N 07-06 10:13
PROVIDERS: ADMIT Internal Medicine Geriatric Medicine; ATTEND Internal Medicine Geriatric Medicine
PROC: 5A1945Z Respiratory Ventilation, 24-96 Consecutive Hours (ICD-10-PCS; principal; 2017-06-30)
PROC: 0BH17EZ Insertion of Endotracheal Airway into Trachea, Via Natural or Artificial Opening (ICD-10-PCS; 2017-06-30)
PROC: 3E0234Z Introduction of Serum, Toxoid and Vaccine into Muscle, Percutaneous Approach (ICD-10-PCS; 2017-06-30)
PROC: 5A1D70Z Performance of Urinary Filtration, Intermittent, Less than 6 Hours Per Day (ICD-10-PCS; 2017-06-30)
PROC: 02HV33Z Insertion of Infusion Device into Superior Vena Cava, Percutaneous Approach (ICD-10-PCS; 2017-06-30)
PROC: 30233N1 Transfusion of Nonautologous Red Blood Cells into Peripheral Vein, Percutaneous Approach (ICD-10-PCS; 2017-07-02)
DX: A41.9 Sepsis, unspecified organism (principal); J96.01 Acute respiratory failure with hypoxia; J69.0 Pneumonitis due to inhalation of food and vomit; R65.21 Severe sepsis with septic shock; G82.50 Quadriplegia, unspecified; N17.9 Acute kidney failure, unspecified; E87.2 Acidosis; N39.0 Urinary tract infection, site not specified; J98.11 Atelectasis; E11.22 Type 2 diabetes mellitus with diabetic chronic kidney disease; I12.9 Hypertensive chronic kidney disease with stage 1 through stage 4 chronic kidney disease, or unspecified chronic kidney disease; E83.39 Other disorders of phosphorus metabolism; I69.365 Other paralytic syndrome following cerebral infarction, bilateral; L89.90 Pressure ulcer of unspecified site, unspecified stage; N18.9 Chronic kidney disease, unspecified; E03.9 Hypothyroidism, unspecified; D64.9 Anemia, unspecified; E11.65 Type 2 diabetes mellitus with hyperglycemia; E78.5 Hyperlipidemia, unspecified; E83.42 Hypomagnesemia; E87.5 Hyperkalemia; E87.6 Hypokalemia; F03.90 Unspecified dementia, unspecified severity, without behavioral disturbance, psychotic disturbance, mood disturbance, and anxiety; F48.2 Pseudobulbar affect; I70.0 Atherosclerosis of aorta; B95.62 Methicillin resistant Staphylococcus aureus infection as the cause of diseases classified elsewhere; F17.200 Nicotine dependence, unspecified, uncomplicated; Z93.1 Gastrostomy status; Z79.02 Long term (current) use of antithrombotics/antiplatelets; Z79.4 Long term (current) use of insulin; Z79.899 Other long term (current) drug therapy; Z88.2 Allergy status to sulfonamides; Z88.8 Allergy status to other drugs, medicaments and biological substances; Z23 Encounter for immunization
CPT/HCPCS: 31500; 36430; 36556; 70450; 71250; 74176; 76770; 82270; 82306; 82570; 82607; 82746; 82805; 83036; 83540; 83550; 83605; 83735; 83930; 84100; 84145; 84300; 84439; 84443; 84540; 85014; 85018; 86704; 86706; 86850; 86900; 86901; 86920; 87040; 87070; 87081; 87086; 87106; 87147; 87205; 87340; 90935; 93005; 93306; 93970; 94002; 94003; 94644; 95816; 96365; 96368; 96375; 97163; 97167; 97530; 99291; C9113; J0360; J0461; J0610; J0692; J0712; J1200; J1644; J1815; J1940; J2060; J2270; J2370; J2543; J2704; J2765; J2916; J3010; J3370; J3475; J3480; J3490; J7030; J7042; J7050; J7060; P9016